=== PATIENT | female | born 1945 | race Caucasian/White ===

== ENCOUNTER → 2017-01-15 | Outpatient (CLI) | payer OTHER | LOC: FIMAGING 13:16 | DX: Z12.31 Encounter for screening mammogram for malignant neoplasm of breast (principal) | CPT/HCPCS: G0202 ==

== ENCOUNTER 2017-03-30 17:56 | Emergency (ER) | payer OTHER ==
[2017-03-30 18:02] VITALS: TEMP 98.4
--- NOTE | 2017-03-30 18:06 | EDPHY ---
HPI/HX/ROS/PE/MDM Narrative: CHIEF COMPLAINT: Chest discomfort HPI: This patient is a 71-year-old female referred to the Emergency Department complaining of chest discomfort beginning at 900 today and remaining constant over time. She describes her chest discomfort as mild pressure without any identified alleviating or exacerbating factors. She reports associated heart palpitations, generalized malaise, fatigue, and mild nausea remaining persistent throughout the entire day. Medical history includes hypercholesteremia; she had a clean heart scan two years ago. Familial history includes CAD in both parents and atrial fibrillation in mother. REVIEW OF SYSTEMS: Aside from elements discussed in the HPI, a comprehensive 10-point review of systems was reviewed and is negative. PMH: Hypercholesteremia, seasonal allergies, hypotension. SOCIAL HISTORY: Non-smoker. Mother lives with her. PHYSICAL EXAM: General:Patient is alert, in no acute distress. ENT:Eyes are normal to inspection. ENT inspection normal. Neck: Normal inspection. Full range of motion. Respiratory:No respiratory distress. Breath sounds normal bilaterally. Cardiovascular: Tachycardic irregularly irregular rhythm. Strong peripheral pulses. Normal cap refill. Abdomen:The abdomen is nontender to palpation. There are no peritoneal signs. There are normal bowel sounds. Back: Normal to inspection. No tenderness to palpation. Skin: Normal color. No rash. Warm and dry. Extremities: Normal appearance. Full range of motion. Neuro: Oriented x3. Normal motor function. Normal sensory function. ED Course: 71-year-old female with history of hypercholesteremia presents with complaints of chest discomfort with associated nausea and fatigue beginning this morning and remaining persistent over time. The patient is tachycardic at triage and has an irregularly irregular rhythm on exam. Will proceed with labs, EKG, and chest x-ray. EKG was ordered and interpreted by myself. Labs obtained and are within normal limits. Troponin is negative. 1813L 20mg IV Diltiazem administered for atrial fibrillation. 1940: Repeat EKG, ordered and interpreted by myself, shows normal sinus rhythm. Please see [facility] system for official reading. I discussed new onset atrial fibrillation with the patient as well as plan for follow-up with cardiology for further evaluation and treatment of this condition. She expresses agreement to this. She understand customary return precautions and will be discharged home in good condition. MDM: This patient presents with palpitations and chest discomfort. She is found to be in rapid atrial fibrillation which subsequently converted to NSR after diltiazem. She is now chest pain and symptom free with a negative troponin, so I think ACS, PE, TAD, PTX are all very unlikely. The patient is safe for outpatient management and I have referred her to a Computer Laboratory Technician. We discussed strict return precautions. - Data Points Imaging Results: Imaging Impressions Chest X-Ray 03/30/17 18:05 Impression: Mild peribronchial thickening suggesting airways disease/bronchitis. Laboratory Results: Laboratory Results 03/30/17 18:12 03/30/17 18:12 03/30/17 03/30/17 18:12 18:12 WBC 6.88 10^3/uL 10^3/uL (3.80-9.50) RBC 4.93 10^6/uL 10^6/uL (4.18-5.33) Hgb 15.3 g/dL g/dL (12.6-16.3) Hct 46.0 % % (38.0-47.0) MCV 93.3 fL fL (81.5-99.8) MCH 31.0 pg pg (27.9-34.1) MCHC 33.3 g/dL g/dL (32.4-36.7) RDW 13.2 % % (11.5-15.2) Plt Count 219 10^3/uL 10^3/uL (150-400) MPV 10.2 fL fL (8.7-11.7) Neut % (Auto) 65.3 % % (39.3-74.2) Lymph % (Auto) 22.5 % % (15.0-45.0) [place] % (Auto) 10.2 % % (4.5-13.0) Eos % (Auto) 0.7 % % (0.6-7.6) Baso % (Auto) 0.9 % % (0.3-1.7) Nucleat RBC Rel Count 0.0 % % (0.0-0.2) Absolute Neuts (auto) 4.49 10^3/uL 10^3/uL (1.70-6.50) Absolute Lymphs (auto) 1.55 10^3/uL 10^3/uL (1.00-3.00) Absolute Monos (auto) 0.70 10^3/uL 10^3/uL (0.30-0.80) Absolute Eos (auto) 0.05 10^3/uL 10^3/uL (0.03-0.40) Absolute Basos (auto) 0.06 10^3/uL 10^3/uL (0.02-0.10) Absolute Nucleated RBC 0.00 10^3/uL 10^3/uL (0-0.01) Immature Gran % 0.4 % % (0.0-1.1) Immature Gran # 0.03 10^3/uL 10^3/uL (0.00-0.10) Sodium 138 mEq/L mEq/L (134-144) Potassium 4.0 mEq/L mEq/L (3.5-5.2) Chloride 106 mEq/L mEq/L (97-110) Carbon Dioxide 22 mEq/l mEq/l (22-31) Anion Gap 10 mEq/L mEq/L (8-16) BUN 20 mg/dL mg/dL (7-23) Creatinine 1.0 mg/dL mg/dL (0.6-1.0) Estimated GFR 55 Glucose 138 mg/dL H mg/dL (70-100) Calcium 9.4 mg/dL mg/dL (8.5-10.4) Troponin I < 0.012 ng/mL ng/mL (0-0.034) Medications Given: Discontinued Medications Diltiazem HCl (Cardizem 25 Mg/5 Ml Vial) 20 mg IVP EDNOW ONE Stop: 03/30/17 18:13 Last Admin: 03/30/17 18:26 Dose: 20 mg General Time Seen by Provider: 03/30/17 18:04 Initial Vital Signs: Initial Vital Signs Temperature (C) 36.9 C 03/30/17 18:00 Heart Rate 112 H 03/30/17 18:00 Respiratory Rate 20 03/30/17 18:00 Blood Pressure 93/84 H 03/30/17 18:00 O2 Sat (%) 93 03/30/17 18:00 O2 Delivery Mode Room Air Allergies/Adverse Reactions: azithromycin Allergy (Verified 03/30/17 17:59) Sulfa (Sulfonamide Antibiotics) Allergy (Verified 03/30/17 17:58) Home Medications: Medication Instructions Recorded Aspirin 81mg (*) 03/30/17 Levothyroxine 03/30/17 Lipitor 03/30/17 Montelukast Sodium 03/30/17 Vitamins And Supplements 03/30/17 Departure - Departure Disposition: Home, Routine, Self-Care Clinical Impression: New onset atrial fibrillation Condition: Good Instructions: Karthikfib (Atrial Fibrillation) (ED) Additional Instructions: 1. Call [facility] tomorrow to schedule a follow-up appointment with a parts inspector to discuss treatment for your atrial fibrillation. 2. Return to the Emergency Department if you experience recurrence of chest pain or heart palpitations; lightheadedness or weakness; excessive sweating; nausea and vomiting; pain radiating to your arm neck or jaw; or for other serious concerns. Referrals: [facility] [Provider Group] - As per Instructions Report Scribed for: Anders Calzada Report Scribed by: Celeste Spann Date of Report: 03/30/17 Time of Report: 18:06 Physician Review and Approval Statement: Portions of this note were transcribed by an ED scribe. I personally performed the history, physical exam, and medical decision making; and confirm the accuracy of the information in the transcribed note.
[2017-03-30] MEDS ORDERED: DILTIAZEM 25 MG/5 ML VIAL IVP ONE (18:12)
--- NOTE | 2017-03-30 18:12 | CPEKG ---
Heart Rate: 149 RR Interval: 403 QRSD Interval: 102 QT Interval: 300 QTC Interval: 473 QRS [place]: -90 T Wave [place]: -62 EKG Severity - ABNORMAL ECG - EKG Impression: ATRIAL FLUTTER EKG Impression: CONSIDER RIGHT VENTRICULAR HYPERTROPHY EKG Impression: INFERIOR INFARCT, AGE INDETERMINATE Electronically Signed By: Sharon Mccollum 02-Apr-2017 13:58:40
[2017-03-30 18:32] LABS: % IMMATURE GRANULYOCYTES 0.4 % (0.0-1.1); ABSOLUTE IMMATURE GRANULOCYTES 0.03 10^3/uL (0.00-0.10); ADD DIFF? NO; ADD MORPH? NO; ADD SCAN? NO; ATYPICAL LYMPHOCYTE FLAG 0 (0-99); FRAGMENT RBC FLAG 0 (0-99); HEMOGLOBIN 15.3 g/dL (12.6-16.3); LEFT SHIFT FLG 0 (0-99); LIPEMIA HEMOLYSIS FLAG 80 (0-99); MEAN CELL HEMOGLOBIN CONCENTR. 33.3 g/dL (32.4-36.7); MEAN CELL VOLUME 93.3 fL (81.5-99.8); MEAN PLATELET VOLUME 10.2 fL (8.7-11.7); PLATELET CLUMPS FLAG 0 (0-99); PLATELET COUNT 219 10^3/uL (150-400); RED BLOOD CELL COUNT 4.93 10^6/uL (4.18-5.33); RED CELL DISTRIBUTION WIDTH 13.2 % (11.5-15.2)
[2017-03-30 18:49] LABS: ANION GAP 10 mEq/L (8-16); CALCIUM 9.4 mg/dL (8.5-10.4); CARBON DIOXIDE 22 mEq/l (22-31); CHLORIDE 106 mEq/L (97-110); GLOMERULAR FILTRATION RATE 55; GLUCOSE 138 mg/dL (70-100); SODIUM 138 mEq/L (134-144)
[2017-03-30 19:00] LABS: TROPONIN I < 0.012 ng/mL (0-0.034)
--- NOTE | 2017-03-30 19:40 | CPEKG ---
Heart Rate: 91 RR Interval: 659 P-R Interval: 160 QRSD Interval: 112 QT Interval: 368 QTC Interval: 453 P [place]: 53 QRS [place]: -54 T Wave [place]: -7 EKG Severity - ABNORMAL ECG - EKG Impression: SINUS RHYTHM EKG Impression: LEFT ANTERIOR FASCICULAR BLOCK EKG Impression: COMPARED WITH MAR 30 2017 AT 18:09, SINUS RHYTHM HAS BEEN RESTORED Electronically Signed By: Sharon Mccollum 02-Apr-2017 13:58:16
[2017-03-30 20:05] VITALS: BP 132/86; PULSE 91; RESP 16; O2SAT 92
== END 2017-03-30 20:05 | disposition home or self-care (01) ==
DX: I48.91 Unspecified atrial fibrillation (principal); Z79.82 Long term (current) use of aspirin
CPT/HCPCS: 96374

== ENCOUNTER → 2018-01-17 | Outpatient (CLI) | payer OTHER | LOC: FIMAGING 07:39 | PROVIDERS: ATTEND Internal Medicine | DX: Z12.31 Encounter for screening mammogram for malignant neoplasm of breast (principal) ==

== ENCOUNTER → 2019-01-25 | Outpatient (CLI) | payer OTHER | LOC: FIMAGING 08:22 | PROVIDERS: ATTEND Internal Medicine | DX: Z12.31 Encounter for screening mammogram for malignant neoplasm of breast (principal) ==